=== PATIENT | female | born 1945 | race Caucasian/White ===

== ENCOUNTER 2017-02-08 11:51 | Inpatient (IN) | payer MEDICARE ==
[~2017-02-08] VITALS: Ht 157.5 cm; Wt 78.6 kg
[~2017-02-08 11:51] MED LIST: ADULT LOW DOSE81 MG PO; ALENDRONATE SOD70 M1 PO; CARVEDILOL3.125 MG PO; CEFDINIR300 M1 PO; CLOPIDOGREL75 M1 PO; DAILY MULTIPLE1 T11 PO; DULOXETINE60 MG PO; FENOFIBRATE160 MG PO; FISH OIL + D31 EACH PO; IBUPROFEN600 MG PO; LIPITOR40 M1 PO; LISINOPRIL20 MG PO
[2017-02-08 11:55] VITALS: BP 98/74
[2017-02-08] MEDS ORDERED: GLYBURIDE 5MG TA5 MG PO (12:02)
--- NOTE | 2017-02-08 12:25 | Emergency Room Report ---
History of Present Illness Time Seen by 121Lg Presenting Problem in Triage Pt arrived:Walked Presenting Problem:PT REPORTS PAIN WHEN TAKING A DEEP BREATH FOR APPROX 1 WEEK, PT REPORTS INTERMITTENT SOA, STATES WORSE WITH ACTIVITY. 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 N Clinical Suspician of Infection? N Mental Status: 1 - Regular (Normal Baseline) Sepsis Risk:Possible Sepsis Risk Have you (or family members/close friends) recently traveled outside the [place]? N If Yes, where/when: Have you had exposure to infectious disease within the past month? N TB? Other? Specify: Patient with hx of CAD with stent placement, patient of Dr. Brown; hx pneumonia; reports pleuritic SSCP x one week, pain with inspiration, cough with intermittent sputum; no calf pain; no fever; no syncope; no nausea or vomiting; no diaphoresis. Has DM, HTN, hyperlipidemia, pos FH of CAD (Dad) and smokes. Source patient, RN notes reviewed, family ALLERGIES Coded Allergies: No Known Allergies (07/16/16) Home Medications Active Scripts Carvedilol (Carvedilol 3.125MG) 3.125 MG PO BID #60 TAB Ref 1 Prov: 08/09/16 CLOPIDOGREL BISULFATE (Clopidogrel) 75 MG PO DAILY #30 TAB Ref 1 Prov: 08/09/16 Atorvastatin Calcium (Lipitor 40MG) 40 MG PO QHS #30 TAB Ref 1 Prov: 08/09/16 Reported Medications DULOXETINE HCL (Duloxetine) 60 MG PO DAILY Aspirin (Adult Low Dose Aspirin EC) 81 MG PO DAILY [place]-3S/Dha/Epa/Fish Oil/D3 (Fish Oil + D3 Softgel) 1 EACH PO DAILY Glyburide (Glyburide 5MG) 5 MG PO DAILY MULTIVITAMIN (Daily Multiple Vitamin) 1 TAB PO DAILY Alendronate Sodium 70 MG PO WEEKLY Lisinopril 20 MG PO DAILY History Medical History General CAD? No Angina: No NV: No Hypertension? Yes Hyperlipidemia? Yes CHF? No DVT? No PE? No COPD? No Asthma? No Anemia? No GERD? No Gastric ulcers? No GI Bleed? No Hernia? No Thyroid Problems? No Hypothyroidism? No CVA? Yes Seizures? No Diabetes? Yes Insulin Dependent: No Insulin Pump: No Home FSBS? Yes Renal Insuffiency? No End Stage Renal Disease? No UTI? No Stones? Yes BPH? No GB Disease: Yes Nephritic Syndrome? No Asplenia? No Hepatitis? No Sickle Cell Disease? No Arthritis? Yes Migraines? No Cataracts? No Glaucoma? No MRSA? No HIV? No TB? No Anxiety? No Depression? Yes Cancer? No Additional hx: 1. Aortic Aneurysm Immunization Hx DT/Tetanus Unknown Flu 2016-17FSN Pneumonia Received In Past Surgical Hx Previous Surgery?Y Hysterectomy-Total Breast Biopsy GALLBLADDER X 2 LEFT KNEE Family History Family Hx Diabetes Yes CAD Yes Hypertension Yes Hyperlipidemia Yes Cancer Yes TB No Social History Smoking Hx Smoker: Current Every Day Smoker Tobacco: Yes Type Cigarettes Packs/day 2 1/2 - 3 Packs Alcohol Alcohol: No Review of Systems All Other Systems Reviewed and Negative Respiratory see HPI Cardiovascular chest pain Physical Exam Vital Signs Vital Signs Date Time Temp Pulse Resp B/P Pulse O2 O2 Flow FiO2 Ox Delivery Rate 02/08 1255 91 20 117/48 93 02/08 1155 98.1 101 20 98/74 95 General Appearance normal appearance, WD/WN, no apparent distress Eye Exam - bilateral eye normal exam, bilateral eye PERRL, bilateral eye EOMI Neck normal inspection, non-tender, supple, full range of motion Respiratory Status Yes: trachea midline, chest symmetrical, non tender chest, pain on inspiration, productive cough, non productive cough. No: respiratory distress, tender on palpation, use of accessory muscles, pain on expiration. Lung Sounds bilateral: normal breath sounds, lungs clear. Cardiovascular normal exam, regular rate/rhythm, no peripheral edema, no gallop, no JVD, no murmur, no rub, normal peripheral pulses Gastrointestinal normal bowel sounds, normal exam, non tender, soft, no organomegaly, no pulsatile mass, no guarding, no rebound Extremities non-tender, normal range of motion, normal inspection, no calf tenderness, no pedal edema Strength 5 Upper Ext (L), 5 Upper Ext (R), 5 Lower Ext (L), 5 Lower Ext (R) Neurologic alert, normal exam, no motor/sensory deficits, oriented x 3 Glascow Coma Scale Glascow Coma Scale Response Value EYE response: 4 Spontaneously 4 MOTOR response: 6 OBEYS 6 VERBAL response: 5 Oriented & Converses 5 Total 15 Skin intact, normal color, warm/dry Lymphatic no adenopathy Medical Decision Making LABS/Meds/Orders Pt receiving controlled substance in ED? No Results/Orders Laboratory Tests 02/08/17 1245: Lactic Acid 1.3 02/08/17 1245: Sodium 138, Potassium 3.9, Chloride 103, Carbon Dioxide 27, BUN 17, Creatinine 0.7, Estimated Creat Clear 93, Estimated GFR (MDRD) 83, Glucose 199 H, Calcium 9.4, Total Bilirubin 0.4, AST 8 L, ALT 19, Alkaline Phosphatase 66, Troponin I < 0.02, Total Protein 7.3, Albumin 2.9 L, Globulin 4.4 H, Albumin/Globulin Ratio 0.7 L, WBC 14.0 H, RBC 4.35, Hgb 12.3, Hct 38.7, MCV 88.8, RDW 14.3, Plt Count 281, MPV 8.0, Gran % 78.2, Gran # 10.9 H, Lymphocytes % 15.4, Monocytes % 5.6, Eosinophils % 0.5, Basophils % 0.4, Lymphocytes # 2.2, Monocytes # 0.8, Eosinophils # 0.1, Basophils # 0.1, PUBS MCHC 31.7 L, MCH 28.2 Current Medication Orders Sig/Linda Start time Last Medication Dose Route Stop Time Status Admin Sodium Chloride 10 ML PRN PRN 02/08 1245 AC IV 02/09 1238 Orders Procedure Date/time Status Decision to admit 02/08 1338 Active IV SALINE LOCK 02/08 1238 Active CULTURE, BLOOD 02/08 1238 Active LACTIC ACID 02/08 1238 Complete ELECTROCARDIOGRAM REQUEST 02/08 1224 Active TROPONIN I 02/08 1224 Complete CBC WITH AUTO DIFF 02/08 1224 Complete CHEM 12 PROFILE 02/08 1224 Complete 12 LEAD EKG-EDD (INITIAL) 02/08 UNK Active XRAY/CT/US XRAY/CT/US XRAY chest XR interpretation by reviewed by me, discussed w/radiologist Xray Results L lingular pneumonia, left sided pleural effusion. RLL mild infiltrate; d/w Dr. Linton; some congestion. Consult MD Physician Consult Time Called [address] Munguia to admit; requests consult with pt PCP, Dr. Klein. Progress ED Progress Notes Date 02/08/17 Time 1406 Comment I spoke with Dr. Klein' office; they will fax records to us, attention Dr. Munguia, as patient has had pleurisy for several months and has been on steroids, as well as had CT of the chest and pulmo consult. Departure Departure Time of Disposition 1339 Disposition Still a Patient Clinical Impression Primary Impression: Bilateral pneumonia Qualifiers: Pneumonia type: due to unspecified organism Lung location: lower lobe of lung Qualified Code: J18.9 - Pneumonia, unspecified organism Secondary Impressions: Pleural effusion Condition STABLE Referrals SANDRA KLEIN (Family) ED Critical Care Critical Care No at 1440
[2017-02-08 13:01] LABS: HEMOGLOBIN 12.3 g/dL (12.2-16.2); LYMPH # 2.2 K/mm3 (0.7-4.5); LYMPH % 15.4 % (10-50.0)
[2017-02-08 13:14] LABS: BUN 17 mg/dL (7-18)
[2017-02-08 13:16] LABS: GFR (ESTIMATED) 83 ML/MIN (59-)
--- NOTE | 2017-02-08 14:35 | RADIOLOGY REPORT PS360 ---
CHEST(2 VIEWS-NOT PORTABLE) HISTORY: PAIN WITH INSPIRATION Patient Age: 71 years: Female Ordering Physician: Ailyn Macias MD TECHNIQUE: PA and lateral chest. COMPARISON :CXRs July [address] chest October 2016 FINDINGS : Change since previous CXRs July [address] chest October 2016 \ Left chest.: Left basilar pneumonia with left pleural effusion. Lingular and LLL infiltrate infiltrate and airspace disease obscuring the left heart border. This is associated withSmall left pleural effusion accounting for the moderate blunting at the left CP angle... Elevation left hemidiaphragm also reflects the atelectasis scarring & modest volume loss left lung base Right chest: Suggestion minimal infiltrate and atelectasis at the right infrahilar region toward right lower lobe and possibly right middle lobe-obscure right heart border. Minor Perihilar infiltrate bilateral . Mild cardio megaly with I suspect mild vascular congestion superimposed upon chronic changes and into the overall interstitial prominence. Additional fullness of the right peritracheal region today may reflect a prominent SVC and azygos vein associated with the CHF.. No abnormalities are seen here otherwise on October 2016 CT chest. Extensive coronary artery calcification and disease is seen on the previous CT chest. IMPRESSION 1... Bilateral basilar pneumonia-with findings most pronounced at left lung base. 2. Left lung.. Lingering pneumonia most pronounced along with a modest left lower lobe pneumonia. & Left pleural effusion 3. Minimal right infrahilar infiltrate-extending towards RLL & possibly RML 4. Cardiomegaly with likely mild vascular congestion /subtle CHF suspect superimposed on chronic changes, perhaps correlate with BNP
[2017-02-08 14:58] VITALS: BP 127/69
--- NOTE | 2017-02-08 15:16 | HISTORY AND PHYSICAL REPORT ---
See Addendum History and Physical (FCA) Date of admission: 02/08/17 Chief complaint: chest pain History: History of Present Illness: Ms Guillen is a 71 year old female with a history of CAD with stent placement, pneumonia, diabetes HTN and smoking disorder who presented to [facility] ER with worsening SOB, cough, and pleuritic CP for 2-3 weeks. She describes pain with inspiration a productive cough of boyer sputum. She denies fever. She did vomit one day. Workup in the ER revealed bilateral pneumonia. She was then admitted. At time of this exam she is still uncomfortable in bilateral chest and shoulders. She appears dyspneic at times. She took Ibuprofen 800mg this AM without help and is requesting Vicodin for the pain (ER MD stated that she would order). Patient has seeing her family MD, Dr. Weathers, and has received steroids for the pleurisy. Patient states that this did not help and only increased her blood sugars. She has had a Chest CT and pulmonary consult. CT of chest 10/29/16IMPRESSION: 1. Coronary artery calcification consistent with coronary artery disease. 2. Slight increase atelectasis within the left upper lobe inferiorly and anteriorly and within the lingula with some mild pleural thickening in the left chest anteriorly. No central obstructing lesion evident. No lobar consolidation or collapse. Mild hyperlucency of the lateral aspect of the lingula. Past Medical History: Medical History: CAD? Yes Angina: No IA: No Hypertension? Yes Hyperlipidemia? Yes CHF? No DVT? No PE? No COPD? No Asthma? No Anemia? No GERD? No Gastric ulcers? No GI Bleed? No Hernia? No Thyroid Problems? No Hypothyroidism? No CVA? Yes Seizures? No Diabetes? Yes Insulin Dependent: No Insulin Pump: No Home FSBS? Yes Renal Insuffiency? No UTI? No Stones? Yes BPH? No GB Disease: Yes Nephritic Syndrome? No Asplenia? No Hepatitis? No Sickle Cell Disease? No Arthritis? Yes Migraines? No Cataracts? No Glaucoma? No MRSA? No HIV? No TB? No Anxiety? No Depression? Yes Cancer? No More? Yes Additional hx: 1. Aortic Aneurysm 2. Tobacco use disorder Surgical history: Previous Surgery?Y Hysterectomy-Total Breast Biopsy GALLBLADDER X 2 LEFT KNEE CARDIAC STENT X1 Medications: Active Scripts Carvedilol (Carvedilol 3.125MG) 3.125 MG PO BID #60 TAB Ref 1 Prov: 08/09/16 CLOPIDOGREL BISULFATE (Clopidogrel) 75 MG PO DAILY #30 TAB Ref 1 Prov: 08/09/16 Atorvastatin Calcium (Lipitor 40MG) 40 MG PO QHS #30 TAB Ref 1 Prov: 08/09/16 Reported Medications DULOXETINE HCL (Duloxetine) 60 MG PO DAILY Aspirin (Adult Low Dose Aspirin EC) 81 MG PO DAILY [place]-3S/Dha/Epa/Fish Oil/D3 (Fish Oil + D3 Softgel) 1 EACH PO DAILY Glyburide (Glyburide 5MG) 5 MG PO DAILY MULTIVITAMIN (Daily Multiple Vitamin) 1 TAB PO DAILY Alendronate Sodium 70 MG PO WEEKLY Lisinopril 20 MG PO DAILY Allergies: Coded Allergies: No Known Allergies (07/16/16) Family History: Family history: Postive for: DM, HTN, cancer. Social History: Smoking Hx Tobacco: Yes Smoker: Current Every Day Smoker Type: Cigarettes Packs/day: 2 1/2 - 3 Packs Are you exposed to second hand Yes Alcohol: Alcohol: No Hx of Drug Use: Drug Use? No Review of Systems: ENT No: ear ache, mouth pain, nasal congestion, sore throat. Cardiovascular Positive for: VIDALES, chest pain. No: edema, palpitations. Respiratory Positive for: dyspnea on exertion, shortness of air, non-productive, pleurisy, pleuritic pain, pneumonia, productive cough (sputum). No: hemoptysis. GI Positive for: constipation, nausea, vomitting. No: GERD, abdominal pain, anorexia, diarrhea, hematemeis, hematochezia, melena. (female) No: frequency, hematuria. Neurological No: confusion, dizziness, headache, seizure, syncope. Musculoskeletal Positive for: joint pain (shoulders). No: extremity pain, extremity swelling. Physical Exam: Vital signs: 1ST Vital Signs Result Date Time Pulse Ox 95 02/08 1155 B/P 98/74 02/08 1155 Temp 98.1 02/08 1155 Pulse 101 02/08 1155 Resp 20 02/08 1155 O2 Delivery ROOM AIR 02/08 1458 Exam: General appearance: alert, no acute distress, just completed some lunch Eyes: anicteric, pupils reactive to light ENT: mucous membranes moist, nose normal, pharynx normal Neck: non-tender, no carotid bruit, supple, lymphadenopathy (absent), thyroid (normal) Cardiovascular: regular rate & rhythm Respiratory: dyspnea (some with talking), bilateral crackles posteriorly up to upper lung canseco ABD: soft, no tenderness, no guarding, bowel sounds present Extremities: no peripheral edema, no calf tenderness Neuro: alert, oriented Lab data: Labs: Laboratory Tests 02/08/17 1245: Lactic Acid 1.3 02/08/17 1245: Sodium 138, Potassium 3.9, Chloride 103, Carbon Dioxide 27, BUN 17, Creatinine 0.7, Estimated Creat Clear 93, Estimated GFR (MDRD) 83, Glucose 199 H, Calcium 9.4, Total Bilirubin 0.4, AST 8 L, ALT 19, Alkaline Phosphatase 66, Troponin I < 0.02, Total Protein 7.3, Albumin 2.9 L, Globulin 4.4 H, Albumin/Globulin Ratio 0.7 L, WBC 14.0 H, RBC 4.35, Hgb 12.3, Hct 38.7, MCV 88.8, RDW 14.3, Plt Count 281, MPV 8.0, Gran % 78.2, Gran # 10.9 H, Lymphocytes % 15.4, Monocytes % 5.6, Eosinophils % 0.5, Basophils % 0.4, Lymphocytes # 2.2, Monocytes # 0.8, Eosinophils # 0.1, Basophils # 0.1, PUBS MCHC 31.7 L, MCH 28.2 Microbiology 02/08 1245 BLOOD: Anaerobic Blood Culture - RECD 02/08 1245 BLOOD: Aerobic Blood Culture - RECD 02/08 1245 BLOOD: Anaerobic Blood Culture - RECD 02/08 1245 BLOOD: Aerobic Blood Culture - RECD Radiology results: Results: 02/08/17 CXR IMPRESSION 1... Bilateral basilar pneumonia-with findings most pronounced at left lung base. 2. Left lung.. Lingering pneumonia most pronounced along with a modest left lower lobe pneumonia. & Left pleural effusion 3. Minimal right infrahilar infiltrate-extending towards RLL & possibly RML 4. Cardiomegaly with likely mild vascular congestion /subtle CHF suspect superimposed on chronic changes, perhaps correlate with BNP Diagnosis(es): 1. Bilateral pneumonia 2. Tobacco abuse 3. Pleuritis 4. CAD (coronary artery disease) 5. Diabetes type 2, controlled Status: Chronic 6. Hypertension Status: Chronic 7. Pleural effusion Plan: IV ABX; checking BNP, may need lasix; added duoneb; has a low grade fever and tylenol added; hydrocodone 5 ordered by ER MD; placed on O2 for her dyspnea at 1705 at 1722
[2017-02-08 15:41] VITALS: BP 114/53
[2017-02-08 19:27] LABS: HEMOGLOBIN 12.2 g/dL (12.2-16.2); LYMPH % 14.8 % (10-50.0)
[2017-02-08 20:14] VITALS: BP 123/59
[2017-02-08 21:21] LABS: NEUTROPHILS 75 % (42-76)
[2017-02-08 23:36] VITALS: BP 107/60
[2017-02-09] VITALS (8 sets, daily range): BP systolic 99–125; BP diastolic 53–68
[2017-02-09 06:48] LABS: HEMOGLOBIN 12.4 g/dL (12.2-16.2); LYMPH # 1.6 K/mm3 (0.7-4.5); LYMPH % 11.5 % (10-50.0)
--- NOTE | 2017-02-09 08:27 | PHARMACY CLINIC NOTE ---
Patient Demographics Patient Demographics Admission date: 02/08/17 Date: 02/09/17 Time: 08 Allergies Coded Allergies: No Known Allergies (07/16/16) HEIGHT- FT: 5 IN: 2.00 K.642 VTE General Information Labs: Laboratory Tests 02/09 02/08 02/08 0600 1245 1245 Hematology Hgb (12.2 - 16.2 g/dL) 12.4 12.3 12.2 Hct (37.0 - 47.0 %) 38.5 38.7 39.0 Plt Count (142 - 424 K/mm3) 273 281 285 Disclaimer The following section includes nursing documentation that has been pulled in for pharmacy review. Patient's VTE score: 2 Patient's VTE Risk: VERY LOW RISK Clinical trial participant? No VTE prophylaxis [id number] [id number] VTE prophylaxis ordered? Yes Type of prophylaxis/treatment: JAYSON at 0815
--- NOTE | 2017-02-09 08:50 | ACUTE CARE PROGRESS NOTE (QUA) ---
Progress Notes Subjective Date 02/09/17 Time 0847 Note The patient feels much better this morning. She is very talkative and animated. Breathing easier. O2 sat 92 percent on room air. Objective Findings Last VS-Temp:98.7 B/P:125/64 Pulse:92 Resp:20 SaO2:92 ROOM AIR Last weight lbs:173 oz:6 K.642 Method:Bed Scales Exam General appearance: alert, no acute distress ENT: mucous membranes moist Cardiovascular: regular rate & rhythm Respiratory: no respiratory distress, diminished breath sounds ABD: soft, no tenderness Extremities: edema (minimal) Skin: dry, intact, normal color Neuro: oriented, speech clear Reviewed: medications, vital signs, lab results, radiology report Assessment/Plan Problem List 1. Bilateral pneumonia 2. Tobacco abuse 3. Pleuritis 4. CAD (coronary artery disease) 5. Diabetes type 2, controlled Status: Chronic 6. Hypertension Status: Chronic 7. Pleural effusion Plan: continue current care This inpt stay is expected to cross 2 MNs from start of care Yes at 0850
[2017-02-10 03:48] VITALS: BP 132/66
[2017-02-10 07:37] VITALS: BP 132/66
[2017-02-10 08:00] VITALS: BP 129/87
--- NOTE | 2017-02-10 08:29 | ACUTE CARE PROGRESS NOTE (QUA) ---
Progress Notes Subjective Date 02/10/17 Time 0730 Note She is better; states she continues with the lung pain but is better; still SOB ; productive cough; eating without problems; ambulates in the room; voiding QS; Bowels have moved Objective Findings Laboratory Tests 02/09/17 2051: POC Glucose 230 H 02/09/17 1638: POC Glucose 278 H 02/09/17 1205: POC Glucose 155 H Microbiology 02/10 0610 SPUTUM: Susceptibility Special Request - RECD 02/10 610 SPUTUM: Organism ID (Sequencing 2)(SANDRA) - RECD 02/10 610 SPUTUM: Organism ID (Sequencing) - RECD 02/10 610 SPUTUM: Mycobacterium gordanae DNA Probe - RECD 02/10 610 SPUTUM: Mycobacterium kansasii DNA Probe - RECD 02/10 610 SPUTUM: Mycobact. avium Complex DNA Probe - RECD 02/10 610 SPUTUM: M.tuberculosis Complex DNA Probe - RECD 02/10 610 SPUTUM: Acid Fast Bacilli Culture - RECD 02/10 610 SPUTUM: Acid Fast Bacilli Smear - RECD 02/10 610 SPUTUM: AFB Specimen Processing Tissue - RECD 02/09 145 SPUTUM: Sputum Culture - RES 02/09 145 SPUTUM: Gram Stain - RES Vital Signs Date Time Temp Pulse Resp B/P Pulse O2 O2 Flow FiO2 Ox Delivery Rate 02/10 0737 98.4 88 18 132/66 93 2 02/10 0647 2 02/10 0552 2 02/10 0552 88 ROOM AIR 02/10 0501 2 02/10 0348 98.4 88 18 132/66 95 ROOM AIR 02/10 0328 2 02/10 0214 2 02/09 2347 97.9 87 20 124/68 95 ROOM AIR 02/09 2110 2 02/09 2048 18 02/09 1943 98.7 108 18 121/62 93 ROOM AIR 02/09 1935 2 02/09 1935 99.4 100 20 116/62 90 2 02/09 1843 2 02/09 1824 2 02/09 1824 90 ROOM AIR 02/09 1723 2 02/09 1700 2 02/09 1534 99.4 100 20 116/62 91 ROOM AIR 02/09 1528 2 02/09 1500 2 02/09 1402 18 02/09 1357 2 02/09 1300 2 02/09 1136 2 02/09 1136 98.4 81 18 99/53 93 ROOM AIR 02/09 1100 2 02/09 1057 2 02/09 0924 2 02/09 0900 2 02/09 0846 98.7 92 20 125/64 92 2 Current Medications Duloxetine HCl 60 MG QHS PO Hydrocodone Bitart/Acetaminophen 0 .STK-MED ONE PO (DC) Insulin Human [rDNA origin] 0 .STK-MED ONE SC (DC) Sodium Chloride 1,000 ML .STK-MED ONE IV (DC) Hydrocodone Bitart/Acetaminophen 0 .STK-MED ONE PO (DC) Insulin Human [rDNA origin] 0 .STK-MED ONE SC (DC) Aspirin 81 MG DAILY PO Ceftriaxone Sodium 1 GM DAILY IV Sodium Chloride 50 ML Clopidogrel Bisulfate 75 MG DAILY PO Glyburide 5 MG DAILY PO Lisinopril 20 MG DAILY PO Atorvastatin Calcium 40 MG QHS PO Carvedilol 3.125 MG BID PO Albuterol/Ipratropium 3 ML Q6H6 INH Furosemide 40 MG DAILY PO Prednisone 20 MG DAILY PO Diagnostic Test (Pha) 1 EACH W/MEALS&HS FS Insulin Human [rDNA origin] SEE ADMIN CRITERIA FOR LOW INTENSITY SS W/MEALS&HS SC Multivitamins 1 EACH 1700 PO Acetaminophen 500 MG Q6HP PRN PO Azithromycin 500 MG Q24H IV Sodium Chloride 250 ML Hydrocodone Bitart/Acetaminophen 1 TAB Q6HP PRN PO Nicotine 21 MG DAILYP PRN TD Sodium Chloride 1,000 ML .Q25H IV Sodium Chloride 10 ML PRN PRN IV Sodium Chloride 10 ML PRN PRN IV (DC) 02/09 1500 02/09 2300 02/10 0700 Intake Total 360 360 825 Output Total Balance 360 360 825 Intake, IV 825 Intake, Oral 360 360 Last VS-Temp:98.4 B/P:132/66 Pulse:88 Resp:18 SaO2:93 ROOM AIR Last weight lbs:173 oz:6 K.642 Method:Bed Scales Exam General appearance: alert, active, no acute distress Cardiovascular: regular rate & rhythm Respiratory: bilateral crackles ABD: soft, no tenderness, bowel sounds present Extremities: no peripheral edema Neuro: alert, oriented Assessment/Plan Problem List 1. Bilateral pneumonia 2. Tobacco abuse 3. Pleuritis 4. CAD (coronary artery disease) 5. Diabetes type 2, controlled Status: Chronic 6. Hypertension Status: Chronic 7. Pleural effusion Patient condition Improving Plan: continue current care, repeat CXR This inpt stay is expected to cross 2 MNs from start of care Yes at 0828
--- NOTE | 2017-02-10 14:48 | RADIOLOGY REPORT PS360 ---
CHEST(2 VIEWS-NOT PORTABLE) HISTORY: Cough, shortness of breath, follow-up pneumonia pneumonia ORDERING PHYSICIAN: Devon Munguia MD PATIENT AGE: 71 years COMPARISON: 02/08/2017 FINDINGS: Mild cardiomegaly without failure. There is chronic coarsening of the bronchovascular markings with chronic changes in the lower lobes. There are small bilateral pleural effusions. There has been improvement in the bilateral lower lung zone infiltrates. There remains some residual infiltrate within the lingula. No acute bony anomalies. IMPRESSION: 1. Chronic changes with improving bilateral lower lobe infiltrates with some residual infiltrate within the lingula. 2. Small bilateral pleural effusions
[2017-02-10 16:00] VITALS: BP 122/54
[2017-02-10 19:00] VITALS: BP 140/61
[2017-02-10 20:30] VITALS: BP 140/61
[2017-02-11 00:13] VITALS: BP 146/83
[2017-02-11 03:45] VITALS: BP 104/48
[2017-02-11 07:34] VITALS: BP 104/48; BP 140/69
[2017-02-11 08:08] VITALS: BP 140/69
--- NOTE | 2017-02-11 08:15 | ACUTE CARE PROGRESS NOTE (QUA) ---
Progress Notes Subjective Date 02/11/17 Time 0813 Assessment/Plan Problem List 1. Bilateral pneumonia 2. Tobacco abuse 3. Pleuritis 4. CAD (coronary artery disease) 5. Diabetes type 2, controlled Status: Chronic 6. Hypertension Status: Chronic 7. Pleural effusion This inpt stay is expected to cross 2 MNs from start of care Yes Antibiotic Stewardship (2) Current Culture Results Microbiology 02/10 610 SPUTUM: Susceptibility Special Request - RECD 02/10 610 SPUTUM: Organism ID (Sequencing 2)(SANDRA) - RECD 02/10 610 SPUTUM: Organism ID (Sequencing) - RECD 02/10 610 SPUTUM: Mycobacterium gordanae DNA Probe - RECD 02/10 610 SPUTUM: Mycobacterium kansasii DNA Probe - RECD 02/10 610 SPUTUM: Mycobact. avium Complex DNA Probe - RECD 02/10 610 SPUTUM: M.tuberculosis Complex DNA Probe - RECD 02/10 610 SPUTUM: Acid Fast Bacilli Culture - RECD 02/10 06 SPUTUM: Acid Fast Bacilli Smear - RECD 02/10 06 SPUTUM: AFB Specimen Processing Tissue - RECD 02/09 1450 SPUTUM: Sputum Culture - RES 02/09 1450 SPUTUM: Gram Stain - RES 02/08 1245 BLOOD: Anaerobic Blood Culture - RES 02/08 1245 BLOOD: Aerobic Blood Culture - RES Infxn that will respond? Yes (PNA) Right drug,dose,and route? Yes (ROCEPHIN AND ZITHROMAX) More targeted antbx? No at 0815
[2017-02-11 10:14] LABS: LYMPH # 2.6 K/mm3 (0.7-4.5); LYMPH % 31.6 % (10-50.0)
[2017-02-11 10:21] LABS: HEMOGLOBIN 11.3 g/dL (12.2-16.2)
--- NOTE | 2017-02-11 10:45 | ACUTE CARE PROGRESS NOTE (QUA) ---
Progress Notes Subjective Date 02/11/17 Time 1034 Note She feels much better and is doing well. It appears that her TB skin test site is indurated suggesting possible tuberculosis infection. This could explain the persistence of her pulmonary problems. One AFB smear is negative. She will need to follow-up with Dr. Vo arrange further evaluation treatment for this. She will be discharged on Cefdinir Patient/family reports: feeling better Objective Findings Laboratory Tests 02/11/17 0945: Sodium 142, Potassium 3.3 L, Chloride 105, Carbon Dioxide 30, BUN 20 H, Creatinine 0.8, Estimated Creat Clear 82, Estimated GFR (MDRD) 71, Glucose 160 H, Calcium 8.4 L, WBC 8.2, RBC 3.97 L, Hgb 11.3 L, Hct 35.2 L, MCV 88.7, RDW 14.2, Plt Count 316, MPV 7.7, Gran % 61.0, Gran # 5.0, Lymphocytes % 31.6, Monocytes % 5.5, Eosinophils % 1.5, Basophils % 0.5, Lymphocytes # 2.6, Monocytes # 0.5, Eosinophils # 0.1, Basophils # 0.0, PUBS MCHC 31.5 L, MCH 27.9 02/11/17 0610: POC Glucose 86 02/10/17 1947: POC Glucose 116 H 02/10/17 1706: POC Glucose 187 H 02/10/17 1109: POC Glucose 166 H Last VS-Temp:97.4 B/P:140/69 Pulse:82 Resp:20 SaO2:94 ROOM AIR Last weight lbs:173 oz:6 K.642 Method:Bed Scales Exam General appearance: alert, no acute distress Eyes: anicteric, PERRLA ENT: mucous membranes moist Cardiovascular: regular rate & rhythm Respiratory: good air movement, basilar rales ABD: soft, no tenderness Extremities: no peripheral edema Musculoskeletal: motor intact Skin: dry, intact, TB Skin test of right forearm with induration and brusing. Neuro: oriented, speech clear Reviewed: medications, vital signs, lab results, radiology report Assessment/Plan Problem List 1. Bilateral pneumonia 2. Tobacco abuse 3. Pleuritis 4. CAD (coronary artery disease) 5. Diabetes type 2, controlled Status: Chronic 6. Hypertension Status: Chronic 7. Pleural effusion Patient condition Improving, the PPD is of concern obviously. Plan: initiate discharge plan, she will be discharged on Cefdinir. She is encouraged to see her doctor within the week. We will make arrangements for follow-up in pulmonary clinic here at [facility] regarding her possibly positive skin test. This inpt stay is expected to cross 2 MNs from start of care Yes Antibiotic Stewardship (2) Infxn that will respond? Yes (PNA) Right drug,dose,and route? Yes (ROCEPHIN AND ZITHROMAX) More targeted antbx? No at 1042
[2017-02-11] MEDS ORDERED: FUROSEMIDE40 MG PO (10:48)
[2017-02-11] MEDS ORDERED: CEFDINIR300 M1 PO (10:50)
[2017-02-11] MEDS ORDERED: PREDNISONE5 MG PO (10:51)
[2017-02-11] MEDS ORDERED: K-DUR 2020 MEQ PO (10:53)
[2017-02-11 12:08] VITALS: BP 140/69
[2017-02-11 18:41] LABS: Antinuclear Antibodies, IFA Positive (.)
--- NOTE | 2017-02-11 21:57 | DISCHARGE SUMMARY STANDARD ---
Discharge Summary (FCA2) Date of admission: 02/08/17 Date of discharge: 02/11/17 Problem List: 1. Bilateral pneumonia 2. Tobacco abuse 3. Pleuritis 4. CAD (coronary artery disease) 5. Diabetes type 2, controlled 6. Hypertension 7. Pleural effusion History of present illness: Ms Guillen is a 71 year old female with a history of CAD with stent placement, pneumonia, diabetes HTN and smoking disorder who presented to [facility] ER with worsening SOB, cough, and pleuritic CP for 2-3 weeks. She described pain with inspiration and a productive cough of boyer sputum. She denied fever. She did vomit one day. Workup in the ER revealed bilateral pneumonia. She was then admitted. At time of exam she was still uncomfortable in bilateral chest and shoulders. She appeared dyspneic at times. She had taken Ibuprofen 800mg in the AM without help and was requesting Vicodin for the pain which the ER MD ordered. Patient had been seeing her family MD, Dr. Klein, and had received steroids for the pleurisy. Patient stated that this did not help and only increased her blood sugars. She had a Chest CT and pulmonary consult. CT of chest 10/29/16IMPRESSION: 1. Coronary artery calcification consistent with coronary artery disease. 2. Slight increase atelectasis within the left upper lobe inferiorly and anteriorly and within the lingula with some mild pleural thickening in the left chest anteriorly. No central obstructing lesion evident. No lobar consolidation or collapse. Mild hyperlucency of the lateral aspect of the lingula. Exam on admission: 1ST Vital Signs Result Date Time Pulse Ox 95 02/08 1155 B/P 98/74 02/08 1155 Temp 98.1 02/08 1155 Pulse 101 02/08 1155 Resp 20 02/08 1155 O2 Delivery ROOM AIR 02/08 1458 Exam: General appearance: alert, no acute distress, just completed some lunch Eyes: anicteric, pupils reactive to light ENT: mucous membranes moist, nose normal, pharynx normal Neck: non-tender, no carotid bruit, supple, lymphadenopathy (absent), thyroid (normal) Cardiovascular: regular rate & rhythm Respiratory: dyspnea (some with talking), bilateral crackles posteriorly up to upper lung canseco ABD: soft, no tenderness, no guarding, bowel sounds present Extremities: no peripheral edema, no calf tenderness Neuro: alert, oriented Hospital Course: On admission patient was started on IV ABX, steroids and duonebs. CP, SOB and cough improved. She was sleeping and eating well. She was OOB without problems She felt much better and was doing well. Her TB skin test site was indurated suggesting possible tuberculosis infection. One AFB smear was negative. On 02/11/17 she was stable for discharge. She was to follow-up with Dr. Vo and arrange further evaluation/treatment for this. She was discharged on Cefdinir. Laboratory data this visit: 02/08/17 1245: Lactic Acid 1.3 02/08/17 1245: Sodium 138, Potassium 3.9, Chloride 103, Carbon Dioxide 27, BUN 17, Creatinine 0.7, Estimated Creat Clear 93, Estimated GFR (MDRD) 83, Glucose 199 H, Calcium 9.4, Total Bilirubin 0.4, AST 8 L, ALT 19, Alkaline Phosphatase 66, Troponin I < 0.02, Total Protein 7.3, Albumin 2.9 L, Globulin 4.4 H, Albumin/Globulin Ratio 0.7 L, WBC 14.0 H, RBC 4.35, Hgb 12.3, Hct 38.7, MCV 88.8, RDW 14.3, Plt Count 281, MPV 8.0, Gran % 78.2, Gran # 10.9 H, Lymphocytes % 15.4, Monocytes % 5.6, Eosinophils % 0.5, Basophils % 0.4, Lymphocytes # 2.2, Monocytes # 0.8, Eosinophils # 0.1, Basophils # 0.1, PUBS MCHC 31.7 L, MCH 28.2 02/11/17 0945: Sodium 142, Potassium 3.3 L, Chloride 105, Carbon Dioxide 30, BUN 20 H, Creatinine 0.8, Estimated Creat Clear 82, Estimated GFR (MDRD) 71, Glucose 160 H, Calcium 8.4 L, WBC 8.2, RBC 3.97 L, Hgb 11.3 L, Hct 35.2 L, MCV 88.7, RDW 14.2, Plt Count 316, MPV 7.7, Gran % 61.0, Gran # 5.0, Lymphocytes % 31.6, Monocytes % 5.5, Eosinophils % 1.5, Basophils % 0.5, Lymphocytes # 2.6, Monocytes # 0.5, Eosinophils # 0.1, Basophils # 0.0, PUBS MCHC 31.5 L, MCH 27.9 Imagin02/08/17 CXR IMPRESSION 1... Bilateral basilar pneumonia-with findings most pronounced at left lung base. 2. Left lung.. Lingering pneumonia most pronounced along with a modest left lower lobe pneumonia. & Left pleural effusion 3. Minimal right infrahilar infiltrate-extending towards RLL & possibly RML 4. Cardiomegaly with likely mild vascular congestion /subtle CHF suspect superimposed on chronic changes, perhaps correlate with BNP 02/10/17 repeat CXR IMPRESSION: 1. Chronic changes with improving bilateral lower lobe infiltrates with some residual infiltrate within the lingula. 2. Small bilateral pleural effusions Discharge medications: Continue taking these medications: Alendronate Sodium (Alendronate Sodium) 70 MG TABLET 70 MILLIGRAM ORAL Q WEEK (168 HRS) DULOXETINE HCL (Duloxetine) 60 MG CAPSULE. 60 MILLIGRAM ORAL DAILY Lisinopril (Lisinopril) 20 MG TABLET 20 MILLIGRAM ORAL DAILY Aspirin (Adult Low Dose Aspirin EC) 81 MG TABLET. 81 MILLIGRAM ORAL DAILY [place]-3S/Dha/Epa/Fish Oil/D3 (Fish Oil + D3 Softgel) 360 MG-1,200 MG-1,000 UNIT CAPSULE 1 EACH ORAL DAILY MULTIVITAMIN (Daily Multiple Vitamin) 1 EACH TABLET 1 TABLET ORAL DAILY Carvedilol (Carvedilol 3.125MG) 3.125 MG TABLET 3.125 MILLIGRAM ORAL TWICE A DAY Qty = 60 CLOPIDOGREL BISULFATE (Clopidogrel) 75 MG TABLET 75 MILLIGRAM ORAL DAILY Qty = 30 Atorvastatin Calcium (Lipitor 40MG) 40 MG TABLET 40 MILLIGRAM ORAL AT BEDTIME NIGHTLY Qty = 30 Glyburide (Glyburide 5MG) 5 MG TABLET 5 MILLIGRAM ORAL DAILY Start taking the following new medications: Furosemide (Furosemide 40MG) 40 MG TABLET 40 MILLIGRAM ORAL DAILY Qty = 30 Refills = 1 Cefdinir (Cefdinir) 300 MG CAPSULE 300 MILLIGRAM ORAL TWICE A DAY Qty = 14 No Refills Prednisone (Prednisone) 5 MG TABLET 5 MILLIGRAM ORAL TWICE A DAY Qty = 40 Refills = 1 Potassium Chloride (K-Dur) 20 MEQ TAB.ER.PRT 20 Milliequivalent ORAL DAILY Qty = 30 Refills = 2 Disposition: Follow-up in pulmonary clinic at [facility] regarding her possibly positive skin test. with: SANDRA KLEIN Follow up: 4 DAYS Care Management Consult for: possible pos for TB. Appt in pulmonary clinic [facility] Activity: Limited activity Diet: Continue same diet Discharge to: HOME Agency needed? N Meds as per reconciliation sheet at 2230
== END 2017-02-11 12:08 | disposition home or self-care (01) | DRG 194 ==
LOC: ER 11:51 → 2ND 13:42 → ER 13:42 → 2ND 13:48
PROVIDERS: Emergency Medicine; Family Medicine
DX: J18.9 Pneumonia, unspecified organism (principal); J90 Pleural effusion, not elsewhere classified; I10 Essential (primary) hypertension; Z72.0 Tobacco use; E11.9 Type 2 diabetes mellitus without complications; Z95.5 Presence of coronary angioplasty implant and graft; R76.11 Nonspecific reaction to tuberculin skin test without active tuberculosis
CPT/HCPCS: J0456